=== PATIENT | male | born 1960 | race Caucasian/White ===

== ENCOUNTER 2016-11-21 11:48 | Emergency (ER) | payer BC ==
[2016-11-21 12:16] VITALS: BP 142/77
[2016-11-21] MEDS ORDERED: Diphtheria,Pertussis(Acell),Tetanus Vaccine 0.5 ML SDV IM ONE (13:06)
[2016-11-21] MEDS ORDERED: Lidocaine 1% 20 ML MDV INJECT ONE (13:06)
[2016-11-21] MEDS ORDERED: Bacitracin/Neomycin/Polymyxin B Oint 0.9 GM U/D Packet ONE (13:37)
[2016-11-21] MEDS ORDERED: Cephalexin 250 MG Cap PO ONE (13:54)
[2016-11-21] MEDS ORDERED: Bacitracin/Neomycin/Polymyxin B Oint 0.9 GM U/D Packet TOP ONE (13:54)
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
== END 2016-11-21 14:00 | disposition home or self-care (01) ==
LOC: KA.ED 11:48
DX: S61.012A Laceration without foreign body of left thumb without damage to nail, initial encounter (principal); Z23 Encounter for immunization; X58.XXXA Exposure to other specified factors, initial encounter; E11.9 Type 2 diabetes mellitus without complications; E03.9 Hypothyroidism, unspecified; Z79.899 Other long term (current) drug therapy
CPT/HCPCS: 12002; 90471; 90715; 99283; A9270

== ENCOUNTER 2019-09-27 02:54 | Emergency (ER) | payer OTHER ==
[2019-09-27] MEDS ORDERED: Sodium Chloride 0.9% 10 ML Syringe FLUSH PRN (03:14)
[2019-09-27] MEDS ORDERED: Sodium Chloride 0.9% 1,000 ML IV ONE ×2 (03:14→04:48)
[2019-09-27] MEDS ORDERED: Ondansetron 4 MG/2 ML SDV IVPUSH ONE (03:39)
--- NOTE | 2019-09-27 03:49 | EDM.PDOC ---
ED HPI GENERAL MEDICAL PROBLEM - General Chief Complaint: General Stated Complaint: N/V, diarrhea, dehydration Time Seen by Provider: 09/27/19 03:38 Source of Information: Reports: Patient History Limitations: Reports: No Limitations - History of Present Illness INITIAL COMMENTS - FREE TEXT/NARRATIVE: Patient is a 59-year-old gentleman who presents to the emergency department this morning via private vehicle with a complaint of abdominal pain, diarrhea, nausea, vomiting. Patient states abdominal pain and diarrhea started approximately 1 week ago. Patient was seen at the clinic on Tuesday, lab values within normal limits, and he was given 2 L of normal saline. Symptoms have persisted and patient states he's had countless bowel movements. Patient now feels very, very weak. Patient denies chest pain, shortness of breath, fever, out of country travel, blood in stool or vomitus, or family members with similar symptoms Onset: Gradual Duration: Week(s): Location: Reports: Abdomen Quality: Reports: Other (Cramping) Severity: Moderate Improves with: Reports: None Worsens with: Reports: None Associated Symptoms: Reports: Diaphoresis, Nausea/Vomiting, Weakness. Denies: Chest Pain, Fever/Chills, Shortness of Breath Abdominal Pain Score (Numeric/FACES): 9 - Related Data Allergies Allergy/AdvReac Type Severity Reaction Status Date / Time No Known Drug Allergies Allergy NKDA Verified 09/27/19 04:00 Home Meds: Home Meds Ibuprofen [Motrin] 200 mg PO ASDIRECTED PRN 05/31/16 [History] Olmesartan Medoxomil [Benicar] 40 mg PO DAILY 05/31/16 [History] metFORMIN HCl [Metformin HCl] 1,000 mg PO DAILY 11/21/16 [History] metFORMIN HCl [Metformin HCl] 500 mg PO 1800 PRN 11/21/16 [History] Celecoxib 200 mg PO BID PRN 09/24/19 [History] Cyclobenzaprine [Flexeril] 10 mg PO BEDTIME PRN 09/24/19 [History] Semaglutide [Ozempic] 1 mg SQ SCOTT 09/24/19 [History] Past Medical History HEENT History: Reports: Impaired Vision Cardiovascular History: Reports: None Gastrointestinal History: Reports: None Musculoskeletal History: Reports: Neck Pain, Chronic Neurological History: Reports: Vertigo Endocrine/Metabolic History: Reports: Diabetes, Type II, Hypothyroidism Dermatologic History: Reports: None - Infectious Disease History Infectious Disease History: Reports: Chicken Pox - Past Surgical History GI Surgical History: Reports: Cholecystectomy, Colonoscopy, Hernia Repair/Other Social & Family History - Family History Family Medical History: Noncontributory Cardiac: Reports: High Cholesterol, [place] - Caffeine Use Caffeine Use: Reports: Energy Drinks, Soda ED ROS GENERAL - Review of Systems Review Of Systems: Comprehensive ROS is negative, except as noted in HPI. Constitutional: Reports: No Symptoms HEENT: Reports: No Symptoms Respiratory: Reports: No Symptoms Cardiovascular: Reports: No Symptoms Endocrine: Reports: No Symptoms GI/Abdominal: Reports: Abdominal Pain, Diarrhea, Nausea, Vomiting. Denies: Black Stool, Bloody Stool, Hematemesis, Hematochezia, Melena, Mucous in Stool : Reports: No Symptoms Musculoskeletal: Reports: No Symptoms Skin: Reports: No Symptoms Neurological: Reports: No Symptoms Psychiatric: Reports: No Symptoms Hematologic/Lymphatic: Reports: No Symptoms Immunologic: Reports: No Symptoms ED EXAM, GENERAL - Physical Exam Exam: See Below Exam Limited By: No Limitations General Appearance: Alert, WD/WN, Mild Distress Nose: Normal Inspection, Normal Mucosa, No Blood Throat/Mouth: Normal Inspection, Normal Oropharynx, No Airway Compromise Head: Atraumatic, Normocephalic Neck: Normal Inspection Respiratory/Chest: No Respiratory Distress, Lungs Clear, Normal Breath Sounds, No Accessory Muscle Use, Chest Non-Tender Cardiovascular: Normal Peripheral Pulses, Regular Rate, Rhythm, No Murmur GI/Abdominal: Soft, Non-Tender, No Organomegaly, No Abnormal Bruit, Abnormal Bowel Sounds (Hyperactive) Back Exam: Normal Inspection. No: CVA Tenderness (L), CVA Tenderness (R) Extremities: Normal Inspection, No Pedal Edema Neurological: Alert, Oriented, Normal Cognition Psychiatric: Normal Affect, Normal Mood Skin Exam: Intact, Normal Color, No Rash, Diaphoretic Lymphatic: No Adenopathy Course - Vital Signs Last Recorded V/S: Last Vital Signs Temp 97.2 F 09/27/19 02:54 Pulse 66 09/27/19 05:00 Resp 20 09/27/19 05:00 BP 116/47 L 09/27/19 05:00 Pulse Ox 99 09/27/19 05:00 - Orders/Labs/Meds Orders: Active Orders 24 hr Category Date Time Status Peripheral IV Care [RC] . DIRECTED Care 09/27/19 03:14 Active Abdomen Pelvis w Cont [CT] Stat Exams 09/27/19 03:52 Ordered Abdomen Pelvis wo Cont [CT] Stat Exams 09/27/19 03:39 Stop Req Sodium Chloride 0.9% @ 999 MLS/HR (1000ml) Med 09/27/19 04:48 Ordered Sodium Chloride 0.9% [Normal Saline] 1,000 ml IV .BOLUS Sodium Chloride 0.9% [Normal Saline] 50 ml Med 09/27/19 04:00 Active IV ASDIRECTED Sodium Chloride 0.9% [Saline Flush] Med 09/27/19 03:14 Active 10 ml FLUSH Q8HR PRN Peripheral IV Insertion Adult [OM.PC] Routine Oth 09/27/19 03:14 Ordered Medication Orders Sodium Chloride (Normal Saline) 50 mls @ 200 mls/min IV ASDIRECTED FLORENTIN Last Admin: 09/27/19 04:27 Dose: 200 mls/min Sodium Chloride (Normal Saline) 1,000 mls @ 999 mls/hr IV .BOLUS ONE Stop: 09/27/19 05:48 Last Admin: 09/27/19 04:52 Dose: 999 mls/hr Sodium Chloride (Saline Flush) 10 ml FLUSH Q8HR PRN PRN Reason: keep vein open Labs: Laboratory Tests 09/27/19 09/27/19 09/27/19 Range/Units 03:40 03:40 04:40 WBC 7.53 (5.00-10.00) 10^3/uL RBC 6.08 H (4.50-6.00) 10^6/uL Hgb 17.3 H (13.0-17.0) g/dL Hct 49.3 (40.0-52.0) % MCV 81.1 L (82.0-92.0) fL MCH 28.5 (27.0-31.0) pg MCHC 35.1 (32.0-36.0) g/dL RDW 14.4 (11.5-14.5) % Plt Count 259 (150-400) 10^3/uL MPV 9.4 (7.4-10.4) fL Immature Gran % (Auto) 0.4 (0.0-5.0) % Neut % (Auto) 47.1 L (50.0-70.0) % Lymph % (Auto) 33.2 (20.0-40.0) % Morris % (Auto) 16.3 H (2.0-8.0) % Eos % (Auto) 2.9 (1.0-3.0) % Baso % (Auto) 0.1 (0.0-1.0) % Immature Gran # (Auto) 0.03 (0.00-0.50) 10^3/uL Neut # (Auto) 3.54 (2.50-7.00) 10^3/uL Lymph # (Auto) 2.50 (1.00-4.00) 10^3/uL Morris # (Auto) 1.23 H (0.10-0.80) 10^3/uL Eos # (Auto) 0.22 (0.10-0.30) 10^3/uL Baso # (Auto) 0.01 (0.00-0.10) 10^3/uL Atypical Lymphocytes Occasional Sodium 136 (136-145) mmol/L Potassium 4.4 (3.3-5.3) mmol/L Chloride 103 (98-115) mmol/L Carbon Dioxide 13.8 L (21.0-32.0) mmol/L Anion Gap 23.6 H (5-15) mmol/L BUN 50 H D (6-25) mg/dL Creatinine 2.76 H D (0.51-1.17) mg/dL Est Cr Clr Drug Dosing 32.57 mL/min Estimated GFR (MDRD) 24 mL/min Glucose 160 H (75 - 99) mg/dL Lactic Acid 6.6 H (0.4-2.0) mmol/L Calcium 8.0 L (8.7-10.3) mg/dL Total Bilirubin 0.5 (0.2-1.0) mg/dL AST 7 L (15-37) U/L ALT 22 (12-78) U/L Alkaline Phosphatase 75 (46-116) IU/L Total Protein 6.2 L (6.4-8.2) g/dL Albumin 2.89 L (3.00-4.80) g/dL Lipase 65 L (73-393) U/L Meds: Medications Generic Name Dose Route Start Last Admin Trade Name Freq PRN Reason Stop Dose Admin Sodium Chloride 50 mls @ 200 mls/min 09/27/19 04:00 09/27/19 04:27 Normal Saline IV 200 mls/min ASDIRECTED FLORENTIN Administration Sodium Chloride 1,000 mls @ 999 mls/hr 09/27/19 04:48 09/27/19 04:52 Normal Saline IV 09/27/19 05:48 999 mls/hr .BOLUS ONE Administration Sodium Chloride 10 ml 09/27/19 03:14 Saline Flush FLUSH Q8HR PRN keep vein open Discontinued Medications Generic Name Dose Route Start Last Admin Trade Name Efrem PRN Reason Stop Dose Admin Sodium Chloride 1,000 mls @ 999 mls/hr 09/27/19 03:14 09/27/19 03:40 Normal Saline IV 09/27/19 04:14 999 mls/hr .BOLUS ONE Administration Iopamidol 100 ml 09/27/19 03:58 09/27/19 04:27 Isovue-370 (76%) IV 09/27/19 03:59 75 ml ONETIME ONE Administration Ondansetron HCl 4 mg 09/27/19 03:39 09/27/19 03:48 Zofran IVPUSH 09/27/19 03:40 4 mg ONETIME ONE Administration - Radiology Interpretation Free Text/Narrative:: CT abdomen and pelvis shows partial small bowel obstruction - Re-Assessments/Exams Free Text/Narrative Re-Assessment/Exam: 09/27/19 05:32 Patient afebrile, vital signs improved now with a blood pressure of 123/46. Following 2 L normal saline. Discussed case with Dr. Moura, hospitalist at [facility]. His accepted transfer of care. Patient will be transferred via ground ambulance. Departure - Departure Time of Disposition: 05:34 Disposition: DC/Tfer to Acute Hospital 02 Condition: Serious Clinical Impression: Acute renal insufficiency Hypotension Qualifiers: Hypotension type: unspecified hypotension type Qualified Code(s): I95.9 - Hypotension, unspecified Abdominal pain Qualifiers: Abdominal location: generalized Qualified Code(s): R10.84 - Generalized abdominal pain Diarrhea Qualifiers: Diarrhea type: unspecified type Qualified Code(s): R19.7 - Diarrhea, unspecified - Discharge Information Referrals: Alexandria Lopez MD [Primary Care Provider] - Forms: ED Department Discharge Sepsis Event Note - Focused Exam Vital Signs: Vital Signs Temp Pulse Pulse Resp BP BP Pulse Ox 09/27/19 05:00 66 20 116/47 L 99 09/27/19 04:34 104/60 09/27/19 04:25 102/58 L 09/27/19 04:00 64 20 82/42 L 98 09/27/19 03:50 64 20 76/42 L 97 09/27/19 03:19 88/43 L 09/27/19 02:54 97.2 F 79 20 73/30 L 99 Date Exam was Performed: 09/27/19 Time Exam was Performed: 05:09 - My Orders Last 24 Hours: My Active Orders 09/27/19 03:14 Peripheral IV Care [RC] . DIRECTED Sodium Chloride 0.9% [Saline Flush] 10 ml FLUSH Q8HR PRN Peripheral IV Insertion Adult [OM.PC] Routine 09/27/19 03:39 Abdomen Pelvis wo Cont [CT] Stat 09/27/19 03:52 Abdomen Pelvis w Cont [CT] Stat 09/27/19 04:00 Sodium Chloride 0.9% [Normal Saline] 50 ml IV ASDIRECTED 09/27/19 04:48 Sodium Chloride 0.9% @ 999 MLS/HR (1000ml) Sodium Chloride 0.9% [Normal Saline] 1,000 ml IV .BOLUS - Assessment/Plan Last 24 Hours: My Active Orders 09/27/19 03:14 Peripheral IV Care [RC] . DIRECTED Sodium Chloride 0.9% [Saline Flush] 10 ml FLUSH Q8HR PRN Peripheral IV Insertion Adult [OM.PC] Routine 09/27/19 03:39 Abdomen Pelvis wo Cont [CT] Stat 09/27/19 03:52 Abdomen Pelvis w Cont [CT] Stat 09/27/19 04:00 Sodium Chloride 0.9% [Normal Saline] 50 ml IV ASDIRECTED 09/27/19 04:48 Sodium Chloride 0.9% @ 999 MLS/HR (1000ml) Sodium Chloride 0.9% [Normal Saline] 1,000 ml IV .BOLUS Assessment:: Dehydration, renal insufficiency Plan: Transfer to [facility]
[2019-09-27] MEDS ORDERED: Iopamidol 755 Mg/ML 100 ML Bottle IV ONE (03:58)
[2019-09-27] MEDS ORDERED: Sodium Chloride 0.9% 50 ML IV SCH (04:00)
[2019-09-27 04:08] LABS: ANION GAP 23.6 mmol/L (5-15)
[2019-09-27 05:35] VITALS: BP 123/46; PULSE 68
--- NOTE | 2019-09-27 08:48 | CT ---
[id number] CT/CT Abdomen Pelvis W IV EXAM: CT Abdomen Pelvis W IV CLINICAL DATA: ABDOMEN PAIN COMPARISON STUDY: None. FINDINGS: Lung bases are clear. Liver, spleen, gallbladder, pancreas, and adrenal glands are unremarkable. 34 x 28 x 31 mm simple exophytic right renal cortical cyst. Kidneys are otherwise unremarkable. Colon is fluid-filled with numerous air-fluid levels and gaseous distention. No evidence of colonic obstruction. Numerous loops of small bowel are also fluid-filled multiple air-fluid levels. There is mild dilation of bowel loops in the anterior mid abdomen measuring up to 40 mm. However, no definitive evidence of small bowel obstruction. No pneumatosis or pneumoperitoneum. No free fluid or fluid collections. 55 x 47 mm fat-containing periumbilical hernia. No bowel within the hernia sac. Postsurgical change in the right pelvis near the inguinal canal, suggesting prior hernia repair. Correlate with surgical history as none was provided. Mild/moderate spondylosis throughout the spine. No fracture or osseous lesion. IMPRESSION: Gas and fluid-filled loops of distal small bowel and colon without evidence of a bowel obstruction. Findings are nonspecific but can be seen with early changes of enterocolitis. Multiple chronic findings are described above. Herbert Griffin MD 09/27/19 0817 Thank you for allowing us to participate in the care of your patient.
== END 2019-09-27 05:58 ==
LOC: KA.ED 02:54
DX: I95.9 Hypotension, unspecified (principal); N28.9 Disorder of kidney and ureter, unspecified; R10.84 Generalized abdominal pain; R19.7 Diarrhea, unspecified; E11.9 Type 2 diabetes mellitus without complications; Z79.84 Long term (current) use of oral hypoglycemic drugs
CPT/HCPCS: 36415; 74177; 80053; 83605; 83690; 85025; 87045; 87046; 87899; 96361; 96374; 99285-25; J2405; J7030; J7050; Q9967